=== PATIENT | female | born 1985 | race Caucasian/White ===

== ENCOUNTER 2018-01-17 12:26 | Inpatient (IN) | payer OTHER ==
[~2018-01-17] VITALS: Wt 68.9 kg
[2018-02-06] MEDS ORDERED: PRENATABS RX T1 EACH PO (06:07)
== END 2018-02-08 13:47 | DRG 807 ==
LOC: SURG-SUITE 02-06 05:31 → LDR 02-06 05:31 → SURG-SUITE 02-06 16:30 → OB/GYN 02-13 12:15
PROC: 10D07Z6 Extraction of Products of Conception, Vacuum, Via Natural or Artificial Opening (ICD-10-PCS; principal; 2018-02-06)
PROC: 0W8NXZZ Division of Female Perineum, External Approach (ICD-10-PCS; 2018-02-06)
PROC: 4A1HXCZ Monitoring of Products of Conception, Cardiac Rate, External Approach (ICD-10-PCS; 2018-02-06)
PROC: 4A033R1 Measurement of Arterial Saturation, Peripheral, Percutaneous Approach (ICD-10-PCS; 2018-02-06)
DX: O41.03X0 Oligohydramnios, third trimester, not applicable or unspecified (principal); O66.5 Attempted application of vacuum extractor and forceps; Z37.0 Single live birth; Z3A.39 39 weeks gestation of pregnancy